=== PATIENT | female | born 1970 | race Caucasian/White ===

== ENCOUNTER 2019-05-02 12:57 | Outpatient (CLI) ==
--- NOTE | 2019-05-02 15:34 | DEXA ---
EXAM: Bone densitometry. History: Osteoporosis. Findings: Evaluation of the lumbar spine reveals a total bone mineral density of 1.163 grams per centimeter squ ared with T-score of negative 0.1. Evaluation of the left hip reveals a total bone mineral density of 0.921 grams per centimeter squared with T-score of negative 0.7. Evaluation of the right hip reveals a total bone mineral density of 0.942 grams per centimeter square d with T-score of negative 0.5. FRAX: 10-year probability for major osteoporotic fracture is 5.6% and 0.1% for hip fracture. Impression: Normal bone mineral density of the lumbar spine and bilateral hips
== END 2019-05-02 12:58 | disposition home or self-care (01) ==
LOC: RAD 12:57
PROVIDERS: ATTEND Family Medicine
DX: Z13.820 Encounter for screening for osteoporosis (principal); Z82.62 Family history of osteoporosis